=== PATIENT | female | born 1975 | race Asian ===

== ENCOUNTER 2017-04-22 04:37 | Inpatient (IN) | payer SELFPAY ==
[~2017-04-22] VITALS: Ht 163 cm; Wt 72.6 kg
[2017-04-22] MEDS: LACTATED RINGERS 1,000 ML IV SCH ×2 (04:59→05:59)
[2017-04-22 06:18] LABS: BASOPHILS # (AUTO) 0.1 K/uL (0.00-0.22); BASOPHILS % (AUTO) 1.1 % (0.0-2.0); EOSINOPHILS # (AUTO) 0.1 K/uL (0-0.4); EOSINOPHILS % (AUTO) 1.6 % (0.0-4.0); HEMATOCRIT 35.5 % (36-48); HEMOGLOBIN 11.4 g/dL (12.0-16.0); LYMPHOCYTES # (AUTO) 1.2 K/uL (2.5-16.5); LYMPHOCYTES % (AUTO) 19.7 % (20.5-51.1); MEAN CORPUSCULAR HEMOGLOBIN 32 pg (27-31); MEAN CORPUSCULAR HGB CONC 32 g/dL (33-37); MEAN CORPUSCULAR VOLUME 100 fL (80-94); MONOCYTES # (AUTO) 0.6 K/uL (0.8-1.0); NEUTROPHILS # (AUTO) 4.3 K/uL (1.8-7.7); NEUTROPHILS % (AUTO) 68.6 % (42.2-75.2); PLATELET COUNT (AUTO) 142 K/uL (140-450); RED BLOOD CELL COUNT(AUTO) 3.54 MIL/uL (4.20-5.40); WHITE BLOOD COUNT (AUTO) 6.3 K/uL (4.8-10.8)
[2017-04-22] MEDS ORDERED: PREN-546 PO (06:29)
[2017-04-22] MEDS ORDERED: FERR325E14 PO (06:29)
[2017-04-22] MEDS ORDERED: LACTATED RINGERS 1,000 ML IV SCH (06:30)
[2017-04-22] MEDS ORDERED: CITRIC ACID/SODIUM CITRATE 30 ML UDC PO ONE (06:30)
[2017-04-22 06:36] VITALS: BP 122/75
[2017-04-22 06:36] LABS: ALBUMIN 2.4 g/dL (3.4-5.0); ANION GAP 12.8 (8-16); CARBON DIOXIDE 23.9 mmol/L (21-32); CREATININE 0.7 mg/dL (0.6-1.3); POTASSIUM 3.7 mmol/L (3.5-5.1); TOTAL BILIRUBIN 0.2 mg/dL (0.0-1.0)
[2017-04-22] MEDS ORDERED: ceFAZolin 1,000 MG VIAL ONE (06:44)
[2017-04-22] MEDS ORDERED: oxyCODONE/APAP 5/325 MG 1 TAB TAB PO PRN (06:45)
[2017-04-22] MEDS ORDERED: IBUPROFEN 800 MG TAB PO PRN (06:45)
[2017-04-22] MEDS ORDERED: HYDROcodone/APAP 5/325 MG 1 TAB TAB PO PRN (06:45)
[2017-04-22] MEDS ORDERED: MEASLES, MUMPS, AND RUBELLA 1 VIAL SQVAC PRN (06:45)
[2017-04-22] MEDS ORDERED: TRIMETHOBENZAMIDE 200 MG/2 ML SYR IM PRN (06:45)
[2017-04-22] MEDS ORDERED: SIMETHICONE 80 MG TAB.CHEW PO PRN (06:45)
[2017-04-22] MEDS ORDERED: METHYLERGONOVINE 0.2 MG/ML AMP IM PRN (06:45)
[2017-04-22] MEDS ORDERED: TEMAZEPAM 15 MG CAP PO PRN (06:45)
[2017-04-22] MEDS ORDERED: CITRIC ACID/SODIUM CITRATE 30 ML UDC ONE (06:48)
[2017-04-22] MEDS ORDERED: MORPHINE PRES FREE 10 MG/10 ML AMP IV ONE (07:03)
[2017-04-22] MEDS ORDERED: MIDAZOLAM 2 MG/2 ML VIAL ONE (07:03)
[2017-04-22 07:12] LABS: APPEARANCE,URINE HAZY (CLEAR); BILIRUBIN,URINE NEGATIVE (NEGATIVE); BLOOD, URINE NEGATIVE (NEGATIVE); COLOR,URINE YELLOW (YELLOW); LEUKOCYTE ESTERASE ,URINE NEGATIVE (NEGATIVE); NITRITE, URINE NEGATIVE (NEGATIVE); UGLUCOSE NEGATIVE (NEGATIVE)
[2017-04-22] MEDS ORDERED: TRIAMCINOLONE 40 MG/ML 5ML VIAL ONE (07:15)
[2017-04-22] MEDS ORDERED: OXYTOCIN 10 UNITS/ML VIAL IM ONE (07:15)
[2017-04-22] MEDS ORDERED: OXYTOCIN 10 UNITS/ML VIAL ONE (07:15)
[2017-04-22] MEDS ORDERED: BUPIVACAINE-MPF 0.75% 10 ML VIAL INJ ONE (07:15)
[2017-04-22] MEDS ORDERED: ONDANSETRON 4 MG/2 ML VIAL IVP PRN ×2 (07:55)
[2017-04-22] MEDS ORDERED: NALBUPHINE 10 MG/ML AMP IVP PRN (07:55)
[2017-04-22] MEDS ORDERED: diphenhydrAMINE 50 MG/ML VIAL IVP PRN ×2 (07:55)
[2017-04-22] MEDS ORDERED: MEPERIDINE 25 MG/ML SYR IVP PRN (07:55)
[2017-04-22] MEDS ORDERED: HYDROmorphone 1 MG/ML AMP IVP PRN (07:55)
[2017-04-22] MEDS ORDERED: NALOXONE 0.4 MG/ML VIAL IVP PRN ×3 (07:55)
[2017-04-22] MEDS ORDERED: ONDANSETRON 4 MG/2 ML VIAL ONE (08:19)
[2017-04-22] MEDS ORDERED: OXYTOCIN 20 UNITS/LR PREMIX 1,000 ML IV ONE (08:19)
[2017-04-22] MEDS ORDERED: diphenhydrAMINE 50 MG/ML VIAL ONE (08:19)
[2017-04-22] MEDS ORDERED: OXYTOCIN 20 UNITS in LACTATED RINGERS 1,000 ML IV SCH (08:30)
--- NOTE | 2017-04-22 10:25 | NUR ---
PATIENT HAS BEEN SCREENED AND CATEGORIZED LOW NUTRITION RISK. PATIENT WILL BE SEEN WITHIN 7 DAYS OF ADMISSION. 04/28/[address]
[2017-04-22] MEDS: OXYTOCIN 20 UNITS in LACTATED RINGERS 1,000 ML IV SCH ×2 (10:30→18:24)
[2017-04-22] MEDS ORDERED: KETOROLAC 30 MG/ML VIAL IM/IVP SCH (12:00)
[2017-04-22 14:59] LABS: RAPID PLASMA REAGIN NON-REACTIVE (Non Reactiv)
[2017-04-22] MEDS: DOCUSATE SOD/SENNA 50/8.6 MG 1 TAB PO SCH (21:20)
[2017-04-23] MEDS: OXYTOCIN 20 UNITS in LACTATED RINGERS 1,000 ML IV SCH (02:48)
[2017-04-23] MEDS ORDERED: OXYTOCIN 10 UNITS/ML VIAL ONE (02:53)
[2017-04-23 06:46] LABS: BASOPHILS % (AUTO) 0.4 % (0.0-2.0); EOSINOPHILS # (AUTO) 0.1 K/uL (0-0.4); EOSINOPHILS % (AUTO) 1.2 % (0.0-4.0); HEMATOCRIT 30.5 % (36-48); LYMPHOCYTES # (AUTO) 0.9 K/uL (2.5-16.5); LYMPHOCYTES % (AUTO) 10.3 % (20.5-51.1); MEAN CORPUSCULAR HEMOGLOBIN 33 pg (27-31); MEAN CORPUSCULAR HGB CONC 33 g/dL (33-37); MEAN CORPUSCULAR VOLUME 100 fL (80-94); MONOCYTES # (AUTO) 0.5 K/uL (0.8-1.0); MONOCYTES % (AUTO) 5.9 % (1.7-9.3); NEUTROPHILS # (AUTO) 7.4 K/uL (1.8-7.7); NEUTROPHILS % (AUTO) 82.2 % (42.2-75.2); PLATELET COUNT (AUTO) 119 K/uL (140-450); RED BLOOD CELL COUNT(AUTO) 3.06 MIL/uL (4.20-5.40); RED CELL DISTRIBUTION WIDTH 13.7 % (11.6-13.7); WHITE BLOOD COUNT (AUTO) 8.9 K/uL (4.8-10.8)
[2017-04-23] MEDS: DOCUSATE SOD/SENNA 50/8.6 MG 1 TAB PO SCH (20:41)
[2017-04-24] MEDS ORDERED: IBUP-2217 PO (11:04)
== END 2017-04-24 15:30 | disposition home or self-care (01) | DRG 766 ==
LOC: MLD 04:37 → MFCC 08:10 → EDSTATUS 14:06
PROVIDERS: ADMIT Obstetrics & Gynecology; ATTEND Obstetrics & Gynecology
PROC: 10D00Z1 Extraction of Products of Conception, Low, Open Approach (ICD-10-PCS; principal; 2017-04-22 07:00)
DX: O34.211 Maternal care for low transverse scar from previous cesarean delivery (principal); O69.1XX0 Labor and delivery complicated by cord around neck, with compression, not applicable or unspecified; Z37.0 Single live birth; Z3A.39 39 weeks gestation of pregnancy; Z28.21 Immunization not carried out because of patient refusal
CPT/HCPCS: 36415; 80053; 81003; 85025; 86592; 86886; 86900; 86901; J0690; J1200; J2250; J2270; J2405; J2590; J3301; J3490; J7060; J7120